=== PATIENT | male | born 1985 | race Caucasian/White ===

== ENCOUNTER 2019-02-20 15:47 | Emergency (ER) | payer SELFPAY ==
--- NOTE | 2019-02-20 15:50 | PDOC ---
Rapid Medical Evaluation Time Seen by Provider: 02/20/19 15:49 Medical Evaluation: 02/20/19 15:49 I have performed a brief in-person evaluation of this patient. The patient presents with a chief complaint of: chest pain Pertinent physical exam findings:stable and in NAD, non-focal I have ordered the following: ekg, labs The patient will proceed to the ED for further evaluation.
[2019-02-20 15:52] VITALS: TEMP 98; BMI 32.5
[2019-02-20 16:24] LABS: BASO % 0.5 % (0-2.0); EOS % 0.7 % (0-4.5); HEMATOCRIT 44.4 % (35.4-49); HEMOGLOBIN 15.3 GM/dL (11.7-16.9); LYMPH % 23.8 % (8-40); MCH 30.6 pg (25.7-33.7); MCHC 34.4 g/dl (32.0-35.9); MEAN CELL VOLUME 88.9 fl (80-96); MONO % 6.3 % (3.8-10.2); NEUT % 68.7 % (42.8-82.8); PLATELET COUNT 251 K/MM3 (134-434); RDW 12.8 % (11.9-15.9); WHITE BLOOD COUNT 9.1 K/mm3 (4.0-10.0)
[2019-02-20 17:13] LABS: ALBUMIN 4.5 g/dl (3.4-5.0); ALK PHOS 71 U/L (45-117); ANION GAP 5 MMOL/L (8-16); BILIRUBIN,TOTAL 0.7 mg/dL (0.2-1); BLOOD UREA NITROGEN 13.6 mg/dL (7-18); CALCIUM 9.4 mg/dL (8.5-10.1); CHLORIDE 107 mmol/L (98-107); CO2 29 mmol/L (21-32); GLUCOSE,RANDOM 81 mg/dL (74-106); POTASSIUM 3.8 mmol/L (3.5-5.1); SGOT/AST 32 U/L (15-37); SGPT/ALT 78 U/L (13-61); SODIUM 141 mmol/L (136-145); TOT PROT 8.2 g/dl (6.4-8.2)
--- NOTE | 2019-02-20 18:16 | PDOC ---
History of Present Illness - General Chief Complaint: Chest Pain Stated Complaint: CHEST PAIN Time Seen by Provider: 02/20/19 15:49 History Source: Patient Exam Limitations: No Limitations - History of Present Illness Initial Comments: 02/20/19 17:16 33 y/o male presents to the emergency room with complaints of intermittent left- sided chest pinching for the past 5 days without aggravating or alleviating factors. Patient states symptoms only happen in the middle the night and keeps him from falling back to sleep patient denies difficulty breathing, palpitations , nausea, dizziness, or sweating. Patient denies smoking or alcohol use. Patient states has not seen his PCP due to lack of insurance. Patient denies medical history. Is this a multiple visit Asthma Patient?: No Timing/Duration: intermittent Severity: mild Associated Symptoms: reports: chest pain Past History - Travel Traveled outside of the country in the last 30 days: No Close contact w/someone who was outside of country & ill: No - Past Medical History Allergies/Adverse Reactions: Allergies Allergy/AdvReac Type Severity Reaction Status Date / Time No Known Allergies Allergy Verified 02/20/19 15:52 COPD: No - Psycho Social/Smoking Cessation Hx Smoking History: Never smoked Patient Lives Alone: No Lives with/in: spouse/SO Review of Systems - Review of Systems Able to Perform ROS?: Yes Constitutional: No: Symptoms Reported HEENTM: No: Symptoms Reported Respiratory: No: Symptoms reported Cardiac (ROS): Yes: Chest Pain ABD/GI: No: Symptoms Reported : No: Symptoms Reported Musculoskeletal: No: Symptoms Reported Integumentary: No: Symptoms Reported Neurological: No: Symptoms reported Endocrine: No: Symptoms Reported *Physical Exam - Vital Signs Last Vital Signs Temp Pulse Resp BP Pulse Ox 98 F 87 18 162/98 98 02/20/19 15:49 02/20/19 15:49 02/20/19 15:49 02/20/19 15:49 02/20/19 15:49 - Physical Exam General Appearance: Yes: Nourished, Appropriately Dressed. No: Apparent Distress HEENT: negative: Pale Conjunctivae Neck: positive: Normal Thyroid, Supple Respiratory/Chest: positive: Lungs Clear, Normal Breath Sounds. negative: Chest Tender, Respiratory Distress, Accessory Muscle Use Cardiovascular: positive: Regular Rhythm, Regular Rate. negative: Murmur Gastrointestinal/Abdominal: positive: Soft. negative: Tenderness Integumentary: positive: Normal Color, Warm, Moist Neurologic: positive: Motor Strength 5/5 (Ambulatory) Heart Score/ECG Review - ECG Intrepretation Rhythm: Regular Rhythm (Normal sinus rhythm. Rate 66. Intervals are regular. No ST elevation or depression.) ED Treatment Course - LABORATORY CBC & Chemistry Diagram: 02/20/19 16:07 02/20/19 16:07 - ADDITIONAL ORDERS Additional order review: Laboratory Results 02/20/19 02/20/19 16:07 16:07 Sodium 141 Potassium 3.8 Chloride 107 Carbon Dioxide 29 Anion Gap 5 L BUN 13.6 Creatinine 1.0 Est GFR (CKD-EPI)AfAm 113.31 Est GFR (CKD-EPI)NonAf 97.76 Random Glucose 81 Calcium 9.4 Total Bilirubin 0.7 AST 32 ALT 78 H Alkaline Phosphatase 71 Creatine Kinase 191 Creatine Kinase Index Cancelled 0.7 CK-MB (CK-2) Cancelled 1.4 Troponin I < 0.02 Total Protein 8.2 Albumin 4.5 02/20/19 16:07 RBC 5.00 MCV 88.9 MCHC 34.4 RDW 12.8 MPV 9.0 Neutrophils % 68.7 Lymphocytes % 23.8 Monocytes % 6.3 Eosinophils % 0.7 Basophils % 0.5 - RADIOLOGY Radiology Studies Ordered: Category Date Time Status CHEST PA & LAT [RAD] Stat Radiology 02/20/19 17:16 Taken Medical Decision Making - Medical Decision Making 02/20/19 17:42 Complaint: Left-sided chest pinching sensation intimately for the past 5 days worsening at night. Patient has no associated symptoms. Patient states has not had a previous work-up for the associated symptoms. Patient concerned since father had an NE at age 54 secondary to blocked artery. Exam: Patient had no reproducible chest pain. Lungs clear to auscultations. Vital signs stable EKG normal sinus rhythm. Plan: Labs, chest x-ray EKG 02/20/19 18:43 Laboratory Tests 02/20/19 02/20/19 16:07 16:07 WBC 9.1 Hgb 15.3 Hct 44.4 Neutrophils % 68.7 Sodium 141 Potassium 3.8 Chloride 107 Carbon Dioxide 29 Anion Gap 5 L BUN 13.6 Creatinine 1.0 Est GFR (CKD-EPI)NonAf 97.76 Random Glucose 81 Calcium 9.4 Total Bilirubin 0.7 AST 32 ALT 78 H Troponin I < 0.02 Total Protein 8.2 Albumin 4.5 Chest x-ray shows no acute pathology. Patient currently asymptomatic. Patient given referral to collections specialist with lifestyle recommendations including reducing fatty fried food since when I mentioned his LFT being slightly elevated he states he has been told he had a fatty liver in the past. Discharge - Discharge Information Problems reviewed: Yes Clinical Impression/Diagnosis: Chest pain Condition: Good Disposition: HOME - Follow up/Referral Referrals: Leon Jewell MD [Primary Care Provider] - Scar Du MD [Staff Physician] - - Patient Discharge Instructions Patient Printed Discharge Instructions: DI for Chest Pain Additional Instructions: Please follow-up with referred collections specialist. Avoid alcohol and smoking. Please take Tylenol for discomfort if you develop any. If symptoms progress or worsen please return to the nearest ER by calling 911. - Post Discharge Activity
[2019-02-20 19:03] VITALS: BP 158/72; PULSE 70
--- NOTE | 2019-02-21 10:35 | EKG ---
Test Reason : Blood Pressure : / mmHG Vent. Rate : 066 BPM Atrial Rate : 066 BPM P-R Int : 124 ms QRS Dur : 090 ms QT Int : 402 ms P-R-T Axes : 037 014 030 degrees QTc Int : 421 ms NORMAL SINUS RHYTHM NORMAL ECG NO PREVIOUS ECGS AVAILABLE Confirmed by Roque Ellis MD ([id number]) on 02/21/2019 10:35:36 AM Referred By: Confirmed By:Roque Ellis MD
== END 2019-02-20 19:02 | disposition home or self-care (01) ==
LOC: JER 15:47
DX: R07.9 Chest pain, unspecified (principal)
CPT/HCPCS: 36415; 71046-TC-FY; 80053; 82550; 82553; 84484; 85025; 93005; 93010; 99284-25

== ENCOUNTER 2021-10-07 11:47 | Inpatient (IN) | payer OTHER ==
[2021-10-07] MEDS ORDERED: SODIUM CHLORIDE 1,000 ML IV STA ×2 (13:21→15:46)
[2021-10-07] MEDS ORDERED: ACETAMINOPHEN 1000 MG/100 ML BAG IVPB ONE (13:21)
[2021-10-07] MEDS ORDERED: ACETAMINOPHEN INJECTION 100 ML IVPB ONE (13:36)
[2021-10-07 13:50] LABS: EPI CELLS 2 /uL (0-25.1); HYALINE CASTS 0 /uL (0-3.1); PH,URINE 5.5 (5.0-8.0); URINE APPEARANCE CLEAR; URINE BACTERIA 2 /uL (0-1359); URINE BILIRUBIN NEGATIVE (NEGATIVE); URINE COLOR YELLOW; URINE GLUCOSE (UA) NEGATIVE (NEGATIVE); URINE KETONE TRACE (NEGATIVE); URINE LEUK ESTERASE NEGATIVE (NEGATIVE); URINE NITRITE NEGATIVE (NEGATIVE); URINE PROTEIN TRACE (NEGATIVE); URINE RBC 1309 /uL (0-23.9); URINE UROBILINOGEN 0.2 mg/dL (0.2-1.0); URINE WBC 10 /uL (0-25.8)
[2021-10-07 14:05] LABS: BASO % 0.4 % (0-2.0); EOS % 0.4 % (0-4.5); HEMATOCRIT 46.1 % (35.4-49); HEMOGLOBIN 15.9 GM/dL (11.7-16.9); LYMPH % 10.6 % (8-40); MCH 30.3 pg (25.7-33.7); MCHC 34.4 g/dl (32.0-35.9); MEAN CELL VOLUME 88.1 fl (80-96); MEAN PLT VOLUME 9.3 fl (7.5-11.1); MONO % 5.4 % (3.8-10.2); NEUT % 83.2 % (42.8-82.8); PLATELET COUNT 246 10^3/uL (134-434); RBC 5.23 M/mm3 (4.00-5.60); WHITE BLOOD COUNT 12.2 K/mm3 (4.0-10.0)
[2021-10-07] MEDS ORDERED: KETOROLAC TROMETHAMINE 30 MG/1 ML VIAL IVPUSH ONE (14:11)
[2021-10-07] MEDS ORDERED: ONDANSETRON 4 MG/2 ML VIAL IVPUSH ONE (14:11)
[2021-10-07] MEDS ORDERED: ONDANSETRON 4 MG/2 ML VIAL ONE (14:12)
[2021-10-07] MEDS ORDERED: KETOROLAC TROMETHAMINE 30 MG/1 ML VIAL ONE (14:12)
[2021-10-07 14:47] LABS: ALBUMIN 4.5 g/dl (3.4-5.0); BLOOD UREA NITROGEN 13.5 mg/dL (7-18); CALCIUM 9.4 mg/dL (8.5-10.1)
[2021-10-07 14:52] LABS: BILIRUBIN,TOTAL 0.7 mg/dL (0.2-1); TOT PROT 8.3 g/dl (6.4-8.2)
[2021-10-07] MEDS ORDERED: morphine CARPU-JECT 2 MG/1 ML DISP.SYRIN IVPUSH ONE (15:42)
[2021-10-07] MEDS ORDERED: METOCLOPRAMIDE HCL INJECTION 10 MG/2 ML VIAL IVPUSH ONE (15:42)
[2021-10-07] MEDS ORDERED: METOCLOPRAMIDE HCL INJECTION 10 MG/2 ML VIAL ONE (16:47)
[2021-10-07] MEDS ORDERED: morphine SULFATE 4 MG/ML VIAL IVPUSH ONE (17:12)
[2021-10-07] MEDS ORDERED: CEFTRIAXONE 2,000 MG in DEXTROSE 5%-WATER - 50 ML IVPB ONE (17:15)
[2021-10-07] MEDS ORDERED: SODIUM CHLORIDE 0.9% 500 ML INFUS.BAG IV ONE (17:15)
[2021-10-07] MEDS ORDERED: ONDANSETRON 4 MG/2 ML VIAL IVPUSH PRN (18:04)
[2021-10-07] MEDS ORDERED: morphine SULFATE 4 MG/ML VIAL IVPUSH PRN (18:04)
[2021-10-07] MEDS: SODIUM CHLORIDE 1,000 ML IV SCH (20:22)
[2021-10-07] MEDS ORDERED: CEFTRIAXONE 2 GM in DEXTROSE 5%-WATER 100 ML IVPB ONE (20:30)
[2021-10-07] MEDS ORDERED: CEFTRIAXONE 2 GM/100 ML BAG IVPB ONE (20:50)
[2021-10-08 03:20] VITALS: BMI 30.2
[2021-10-08 09:12] LABS: BASO % 0.4 % (0-2.0); EOS % 0.9 % (0-4.5); HEMATOCRIT 41.6 % (35.4-49); HEMOGLOBIN 14.5 GM/dL (11.7-16.9); MCH 30.5 pg (25.7-33.7); MCHC 34.8 g/dl (32.0-35.9); MEAN CELL VOLUME 87.5 fl (80-96); MEAN PLT VOLUME 8.8 fl (7.5-11.1); MONO % 5.1 % (3.8-10.2); NEUT % 76.6 % (42.8-82.8); PLATELET COUNT 213 10^3/uL (134-434); RBC 4.76 M/mm3 (4.00-5.60); RDW 12.9 % (11.9-15.9); WHITE BLOOD COUNT 8.4 K/mm3 (4.0-10.0)
[2021-10-08 10:14] LABS: CALCIUM 8.6 mg/dL (8.5-10.1)
[2021-10-08 10:16] LABS: ALBUMIN 3.7 g/dl (3.4-5.0); BLOOD UREA NITROGEN 11.6 mg/dL (7-18)
[2021-10-08 10:18] LABS: CREATININE 1.1 mg/dL (0.55-1.3)
[2021-10-08 10:21] LABS: BILIRUBIN,TOTAL 1.4 mg/dL (0.2-1)
[2021-10-08] MEDS: SODIUM CHLORIDE 1,000 ML IV SCH (13:31)
[2021-10-08] MEDS ORDERED: AMOXICILLIN 500 MG CAPSULE (FP) PO SCH (14:00)
[2021-10-08 15:24] VITALS: BP 127/83; PULSE 56; TEMP 98.1
== END 2021-10-08 18:04 | disposition home or self-care (01) | DRG 690 ==
LOC: JERFT 11:47 → JERBED 17:48 → J5S 10-08 02:25
PROVIDERS: ADMIT Specialist; ATTEND Specialist
DX: N13.6 Pyonephrosis (principal); R07.89 Other chest pain
CPT/HCPCS: 0241U-QW; 36415; 74176-TC; 80053; 81003; 82360; 83690; 85025; 87086; 99285-25